=== PATIENT | male | born 1995 | race American Indian/Alaskan Native ===

== ENCOUNTER 2020-09-22 17:17 | Emergency (ER) | payer BC ==
[2020-09-22] MEDS ORDERED: HYOSCYAMINE SUBL 0.125 MG TAB SL ONE ×2 (18:43→21:11)
[2020-09-22] MEDS ORDERED: ONDANSETRON 4 MG ODT TAB PO ONE ×2 (18:43→21:11)
--- NOTE | 2020-09-22 18:52 | Emergency Department Report ---
ED N/V/D HPI - General Chief complaint: Abdominal Pain Stated complaint: ABD PAIN X 4DAYS Time Seen by Provider: 09/22/20 18:36 Source: patient Mode of arrival: Ambulatory Limitations: No Limitations - History of Present Illness Initial comments: Patient is a 25-year-old male presents emergency room with complaints of nausea, vomiting, diarrhea that began 4 days ago. He states that he had approximately 6 episodes of diarrhea today. He states he has a couple episodes of vomiting. He states he has lower abdominal discomfort. States it feels like a cramping and churning feeling. He states that 4 days ago he had a fever but that has completely resolved. He states he has not had a fever since then. He denies any hematochezia, melena, hematemesis, pus in the stool, back pain, urinary symptoms, productive cough. He has a past medical history of asthma and seizures. He has an allergy to ibuprofen. He denies any past abdominal surgical history. He denies any known sick contacts or recent travel. He denies any water from a different source, camping, recent antibiotics. - Related Data Previous Rx's Medication Instructions Recorded Last Taken Type Acetaminophen/Codeine [Tylenol #3] 1 tab PO Q6H PRN #14 tab 02/10/15 Unknown Rx Ibuprofen [Motrin 800 MG tab] 800 mg PO Q8HR PRN #30 tablet 02/10/15 Unknown Rx methOCARBAMOL [Robaxin TAB] 500 mg PO BID #10 tab 02/10/15 Unknown Rx Hyoscyamine Subl [Levsin Sl 0.125 0.125 mg SL Q6HR PRN #7 tab 09/22/20 Unknown Rx TAB] Ondansetron [Zofran Odt] 4 mg PO Q8HR PRN #7 tab.rapdis 09/22/20 Unknown Rx Allergies Allergy/AdvReac Type Severity Reaction Status Date / Time ibuprofen Allergy Rash Verified 09/22/20 18:32 ED Review of Systems ROS: Stated complaint: ABD PAIN X 4DAYS Other details as noted in HPI Comment: All other systems reviewed and negative ED Past Medical Hx - Past Medical History Previous Medical History?: Yes Hx Seizures: Yes Hx Psychiatric Treatment: Yes (bipolar) Hx Asthma: Yes - Social History Smoking Status: Never Smoker Substance Use Type: None - Medications Home Medications: Home Medications Medication Instructions Recorded Confirmed Last Taken Type Acetaminophen/Codeine [Tylenol #3] 1 tab PO Q6H PRN #14 tab 02/10/15 Unknown Rx Ibuprofen [Motrin 800 MG tab] 800 mg PO Q8HR PRN #30 tablet 02/10/15 Unknown Rx methOCARBAMOL [Robaxin TAB] 500 mg PO BID #10 tab 02/10/15 Unknown Rx Hyoscyamine Subl [Levsin Sl 0.125 0.125 mg SL Q6HR PRN #7 tab 09/22/20 Unknown Rx TAB] Ondansetron [Zofran Odt] 4 mg PO Q8HR PRN #7 tab.rapdis 09/22/20 Unknown Rx ED Physical Exam - General Limitations: No Limitations General appearance: alert, in no apparent distress - Head Head exam: Present: atraumatic, normocephalic - Eye Eye exam: Present: normal appearance - ENT ENT exam: Present: mucous membranes moist - Respiratory Respiratory exam: Present: rhonchi (very mild bilaterally, clears with cough). Absent: respiratory distress, wheezes, rales, stridor, chest wall tenderness, accessory muscle use, decreased breath sounds, prolonged expiratory - Cardiovascular Cardiovascular Exam: Present: regular rate, normal rhythm, normal heart sounds. Absent: systolic murmur, diastolic murmur, rubs, gallop - GI/Abdominal GI/Abdominal exam: Present: soft, normal bowel sounds. Absent: distended, tenderness, guarding, rebound, rigid - Neurological Exam Neurological exam: Present: alert, oriented X3 - Psychiatric Psychiatric exam: Present: normal affect, normal mood - Skin Skin exam: Present: warm, dry, intact ED Course Vital Signs 09/22/20 18:32 Temperature 98.4 F Pulse Rate 69 Respiratory 18 Rate Blood Pressure 158/105 [Right] O2 Sat by Pulse 98 Oximetry ED Medical Decision Making - Lab Data Result diagrams: 09/22/20 18:51 09/22/20 18:51 Lab Results 09/22/20 09/22/20 09/22/20 Range/Units 18:51 18:51 Unknown WBC 9.3 (4.5-11.0) K/mm3 RBC 4.80 (3.65-5.03) M/mm3 Hgb 14.2 (11.8-15.2) gm/dl Hct 42.6 (35.5-45.6) % MCV 89 (84-94) fl MCH 30 (28-32) pg MCHC 33 (32-34) % RDW 13.5 (13.2-15.2) % Plt Count 206 (140-440) K/mm3 Lymph % (Auto) 14.4 (13.4-35.0) % [place] % (Auto) 9.1 H (0.0-7.3) % Eos % (Auto) 2.4 (0.0-4.3) % Baso % (Auto) 0.8 (0.0-1.8) % Lymph # (Auto) 1.3 (1.2-5.4) K/mm3 [place] # (Auto) 0.8 (0.0-0.8) K/mm3 Eos # (Auto) 0.2 (0.0-0.4) K/mm3 Baso # (Auto) 0.1 (0.0-0.1) K/mm3 Seg Neutrophils % 73.3 H (40.0-70.0) % Seg Neutrophils # 6.8 (1.8-7.7) K/mm3 Sodium 138 (137-145) mmol/L Potassium 4.2 (3.6-5.0) mmol/L Chloride 100.1 (98-107) mmol/L Carbon Dioxide 31 H (22-30) mmol/L Anion Gap 11 mmol/L BUN 9 (9-20) mg/dL Creatinine 1.1 (0.8-1.3) mg/dL Estimated GFR > 60 ml/min BUN/Creatinine Ratio 8 % Glucose 91 (75-100) mg/dL Calcium 9.3 (8.4-10.2) mg/dL Total Bilirubin 0.20 (0.1-1.2) mg/dL AST 25 (5-40) units/L ALT 21 (7-56) units/L Alkaline Phosphatase 83 (35-129) units/L Total Protein 7.9 (6.3-8.2) g/dL Albumin 4.3 (3.9-5) g/dL Albumin/Globulin Ratio 1.2 % Lipase 24 (13-60) units/L Urine Color Yellow (Yellow) Urine Turbidity Clear (Clear) Urine pH 6.0 (5.0-7.0) Ur Specific [place] 1.021 (1.003-1.030) Urine Protein <15 mg/dl (Negative) mg/dL Urine Glucose (UA) Neg (Negative) mg/dL Urine Ketones Neg (Negative) mg/dL Urine Blood Neg (Negative) Urine Nitrite Neg (Negative) Urine Bilirubin Neg (Negative) Urine Urobilinogen < 2.0 (<2.0) mg/dL Ur Leukocyte Esterase Neg (Negative) Urine WBC (Auto) 3.0 (0.0-6.0) /HPF Urine RBC (Auto) 2.0 (0.0-6.0) /HPF Urine Mucus 3+ /HPF - Radiology Data Radiology results: report reviewed Ordering Physician: LUCILA LAW Date of Service: 09/22/20 Procedure(s): XR abd series w cxr 1V Accession Number(s): [id number] cc: LUCILA LAW Fluoro Time In Minutes: ACUTE ABDOMINAL SERIES INDICATION / CLINICAL INFORMATION: n/v/d, rhonchi bilaterally. COMPARISON: None available. FINDINGS: Normal bowel gas pattern. No evidence of obstruction or pneumoperitoneum. The accompanying chest x- ray shows no acute disease Signer Name: Ousmane Caal MD FACR Signed: 09/22/2020 7:22 PM Workstation Name: [id number] Transcribed By: MS Dictated By: Ousmane Caal MD Electronically Authenticated By: Ousmane Caal MD Signed Date/Time: 09/22/201921 DD/ 20 TD/TT: - Medical Decision Making Patient is a 25-year-old male presents emergency room with complaints of nausea, vomiting, diarrhea that began 4 days ago. He states that he had approximately 6 episodes of diarrhea today. He states he has a couple episodes of vomiting. He states he has lower abdominal discomfort. States it feels like a cramping and churning feeling. He states that 4 days ago he had a fever but that has completely resolved. He states he has not had a fever since then. He denies any hematochezia, melena, hematemesis, pus in the stool, back pain, urinary symptoms, productive cough. He has a past medical history of asthma and seizures. He has an allergy to ibuprofen. He denies any past abdominal surgical history. He denies any known sick contacts or recent travel. He denies any water from a different source, camping, recent antibiotics. Vitals are stable. No abdominal tenderness on exam, no guarding, no urine, no rigidity, normal bowel sounds, no peritoneal signs. Labs are normal. UA is within normal limits. X-ray chest with abdomen: Normal bowel gas pattern. No evidence of obstruction or pneumoperitoneum. The accompanying chest x-ray shows no acute disease. Symptoms could likely be consistent with a viral gastroenteritis. Do not suspect acute emergent intra-abdominal pathology at this time, no significant abdominal tenderness, patient is tolerating p.o. intake, no fever, no leukocytosis, no hematochezia, no pus in the stool. Discussed strict return precautions with patient. Zofran and Levsin given in the emergency department he is able to tolerate p.o. intake without difficulty and symptoms improved and he was feeling much better ready go home. Discussed all results with patient. Patient given prescription for Zofran and Levsin. Advised patient Please take medication as prescribed. Increase your water intak e. Eat a bland liquid diet slowly advance your diet as tolerated. Follow-up with a primary care doctor. Return to emergency room for new or worsening symptoms. Critical care attestation.: If time is entered above; I have spent that time in minutes in the direct care of this critically ill patient, excluding procedure time. ED Disposition Clinical Impression: Nausea vomiting and diarrhea Disposition: - TO HOME OR SELFCARE Is pt being admited?: No Does the pt Need Aspirin: No Condition: Stable Instructions: Viral Gastroenteritis, Adult Additional Instructions: Please take medication as prescribed. Increase your water intake. Eat a bland liquid diet slowly advance your diet as tolerated. Follow-up with a primary care doctor. Return to emergency room for new or worsening symptoms. Prescriptions: Hyoscyamine Subl [Levsin Sl 0.125 TAB] 0.125 mg SL Q6HR PRN #7 tab PRN Reason: diarrhea/abdominal cramping Ondansetron [Zofran Odt] 4 mg PO Q8HR PRN #7 tab.rapdis PRN Reason: nausea/vomiting Referrals: ADRIENNE FOSTER MD [Staff Physician] - 2-3 Days [facility] [Provider Group] - 2-3 Days Time of Disposition: 20:04 Print Language: AUSTRALIAN
[2020-09-22 19:09] LABS: Basophils # (Auto) 0.1 K/mm3 (0.0-0.1); Basophils % (Auto) 0.8 % (0.0-1.8); Eosinophils # (Auto) 0.2 K/mm3 (0.0-0.4); Eosinophils % (Auto) 2.4 % (0.0-4.3); Hematocrit 42.6 % (35.5-45.6); Hemoglobin 14.2 gm/dl (11.8-15.2); Lymphocytes # (Auto) 1.3 K/mm3 (1.2-5.4); Lymphocytes % (Auto) 14.4 % (13.4-35.0); Mean Corpuscular HGB Conc 33 % (32-34); Mean Corpuscular Volume 89 fl (84-94); Monocytes # (Auto) 0.8 K/mm3 (0.0-0.8); Monocytes % (Auto) 9.1 % (0.0-7.3); Red Cell Distribution Width 13.5 % (13.2-15.2)
[2020-09-22 19:24] LABS: Alanine Aminotransferase 21 units/L (7-56); Albumin 4.3 g/dL (3.9-5); BUN/Creatinine Ratio 8; Blood Urea Nitrogen 9 mg/dL (9-20); Calcium 9.3 mg/dL (8.4-10.2); Hemolysis Index 7
--- NOTE | 2020-09-22 19:26 | XRay Report ---
ACUTE ABDOMINAL SERIES INDICATION / CLINICAL INFORMATION: n/v/d, rhonchi bilaterally. COMPARISON: None available. FINDINGS: Normal bowel gas pattern. No evidence of obstruction or pneumoperitoneum. The accompanying chest x-ra y shows no acute disease Signer Name: Ousmane Caal MD FACR Signed: 09/22/2020 7:22 PM Workstation Name: [id number]
[2020-09-22 19:27] LABS: Platelet Count 206 K/mm3 (140-440)
[2020-09-22 20:00] LABS: Bilirubin,Urine NEG (Negative); Blood,Urine NEG (Negative); Color,Urine Yellow (Yellow); Mucus,Urine 3+ /HPF; Protein,Urine <15 mg/dL mg/dL (Negative); Urobilinogen,Urine < 2.0 mg/dL (<2.0)
[2020-09-22 21:24] VITALS: BP 161/99
== END 2020-09-22 21:24 | disposition home or self-care (01) ==
LOC: ED 17:17
DX: R11.2 Nausea with vomiting, unspecified (principal); R19.7 Diarrhea, unspecified; G40.909 Epilepsy, unspecified, not intractable, without status epilepticus; F32.9 Major depressive disorder, single episode, unspecified; J45.909 Unspecified asthma, uncomplicated; Z88.8 Allergy status to other drugs, medicaments and biological substances
CPT/HCPCS: 36415; 74022; 80053; 81001; 83690; 85025; Q0162

== ENCOUNTER 2020-11-11 11:46 | Emergency (ER) | payer BC ==
--- NOTE | 2020-11-11 14:12 | XRay Report ---
LEFT ANKLE 3 VIEWS INDICATION: left ankle pain. COMPARISON: No relevant prior imaging study available. FINDINGS: No acute, displaced fracture or dislocation is seen. There is a corticated ossific density measuring 5 mm adjacent to the tip of the lateral malleolus is likely a chronic ununited fracture fragment or h eterotopic ossification related to prior ligament injury. There is an accessory navicular medially. Soft tissue swelling is noted at the left ankle, greatest anteriorly. No foreign bodies are seen. IMPRESSION: 1. Soft tissue swelling, no acute fracture. Signer Name: Rigo Teresa MD Signed: 11/11/2020 2:05 PM Workstation Name: [id number]
[2020-11-11 14:22] VITALS: BP 155/105
--- NOTE | 2020-11-11 14:27 | Emergency Department Report ---
ED Lower Extremity HPI - General Chief Complaint: Extremity Injury, Lower Stated Complaint: PAIN IN BOTH LEGS Time Seen by Provider: 11/11/20 12:59 Source: patient Mode of arrival: Ambulatory Limitations: No Limitations - History of Present Illness Initial Comments: This is a 25-year-old male nontoxic, well nourished in appearance, no acute signs of distress presents to the ED with c/o of left ankle pain several days. Patient stated that he was running and twisted his ankle. Stated has radiation up towards his leg. Patient denies any other injuries or trauma. Patient denies any numbness, tingling, fever, chills, nausea, vomiting, chest pain, shortness of breath, headache, stiff neck. Patient denies any joint swelling or joint redness. Patient denies decreased range of motion. Patient stated has decreased gait due to pain. Patient denies any calf pain or swelling. Patient stated allergies to ibuprofen. Denies any significant past medical history. MD Complaint: ankle injury -: days(s) Injury: Ankle: Left Place: street/outdoors Severity: mild Severity scale (0 -10): 8 Improves With: immobilization Worsens With: weight bearing, movement, palpation Associated Symptoms: swelling, able to partially bear weight. denies: snap/pop sensation, numbness, tingling, unable to bear weight - Related Data Previous Rx's Medication Instructions Recorded Last Taken Type Acetaminophen/Codeine [Tylenol #3] 1 tab PO Q6H PRN #14 tab 02/10/15 Unknown Rx Ibuprofen [Motrin 800 MG tab] 800 mg PO Q8HR PRN #30 tablet 02/10/15 Unknown Rx methOCARBAMOL [Robaxin TAB] 500 mg PO BID #10 tab 02/10/15 Unknown Rx Hyoscyamine Subl [Levsin Sl 0.125 0.125 mg SL Q6HR PRN #7 tab 09/22/20 Unknown Rx TAB] Ondansetron [Zofran Odt] 4 mg PO Q8HR PRN #7 tab.rapdis 09/22/20 Unknown Rx Acetaminophen [Tylenol] 650 mg PO Q8H PRN #12 capsule 11/11/20 Unknown Rx Allergies Allergy/AdvReac Type Severity Reaction Status Date / Time ibuprofen Allergy Rash Verified 11/11/20 13:00 ED Review of Systems ROS: Stated complaint: PAIN IN BOTH LEGS Other details as noted in HPI Comment: All other systems reviewed and negative Constitutional: denies: chills, fever Eyes: denies: eye pain, eye discharge, vision change ENT: denies: ear pain, throat pain Respiratory: denies: cough, shortness of breath, wheezing Cardiovascular: denies: chest pain, palpitations Endocrine: no symptoms reported Gastrointestinal: denies: abdominal pain, nausea, diarrhea Genitourinary: denies: urgency, dysuria Musculoskeletal: denies: back pain, joint swelling, arthralgia Skin: denies: rash, lesions Neurological: denies: headache, weakness, paresthesias Psychiatric: denies: anxiety, depression Hematological/Lymphatic: denies: easy bleeding, easy bruising ED Past Medical Hx - Past Medical History Hx Seizures: Yes Hx Psychiatric Treatment: Yes (bipolar) Hx Asthma: Yes - Social History Smoking Status: Never Smoker Substance Use Type: None - Medications Home Medications: Home Medications Medication Instructions Recorded Confirmed Last Taken Type Acetaminophen/Codeine [Tylenol #3] 1 tab PO Q6H PRN #14 tab 02/10/15 Unknown Rx Ibuprofen [Motrin 800 MG tab] 800 mg PO Q8HR PRN #30 tablet 02/10/15 Unknown Rx methOCARBAMOL [Robaxin TAB] 500 mg PO BID #10 tab 02/10/15 Unknown Rx Hyoscyamine Subl [Levsin Sl 0.125 0.125 mg SL Q6HR PRN #7 tab 09/22/20 Unknown Rx TAB] Ondansetron [Zofran Odt] 4 mg PO Q8HR PRN #7 tab.rapdis 09/22/20 Unknown Rx Acetaminophen [Tylenol] 650 mg PO Q8H PRN #12 capsule 11/11/20 Unknown Rx ED Physical Exam - General Limitations: No Limitations General appearance: alert, in no apparent distress - Head Head exam: Present: atraumatic, normocephalic - Eye Eye exam: Present: normal appearance - Neck Neck exam: Present: normal inspection, full ROM - Respiratory Respiratory exam: Absent: respiratory distress - Cardiovascular Cardiovascular Exam: Present: regular rate - Extremities Exam Extremities exam: Present: normal inspection, full ROM, tenderness, normal capillary refill. Absent: pedal edema, joint swelling, calf tenderness - Expanded Lower Extremity Exam Left Hip exam: Present: normal inspection, full ROM, external rotation, internal rotation, pelvic stability. Absent: tenderness, swelling, abrasion, laceration, ecchymosis, deformity, crepidus, dislocation, erythema, shortening Upper Leg exam: Present: normal inspection, full ROM. Absent: tenderness, swelling, abrasion, laceration, ecchymosis, deformity, crepidus, dislocation, erythema Knee exam: Present: normal inspection, full ROM, full knee extension. Absent: tenderness, swelling, abrasion, laceration, ecchymosis, deformity, crepidus, dislocation, erythema, effusion, pain w/ pronation/supination, posterior draw sign, pain/laxity with valgus, pain/laxity with varus Lower Leg exam: Present: normal inspection, full ROM. Absent: tenderness, swelling, abrasion, laceration, ecchymosis, deformity, crepidus, dislocation, erythema, palpable cord, Beth's sign Ankle exam: Present: normal inspection, full ROM, tenderness, swelling. Absent: abrasion, laceration, ecchymosis, deformity, crepidus, dislocation, erythema, anterior draw sign Foot/Toe exam: Present: normal inspection, full ROM. Absent: tenderness, swelling, abrasion, laceration, ecchymosis, deformity, crepidus, dislocation, erythema, amputation, puncture wound, foreign body, calcaneal tenderness, tenderness at base of 5th metatarsal, nail avulsion, subungual hematoma Neuro vascular tendon exam: Present: no vascular compromise Gait: Positive: observed and limited by pain - Back Exam Back exam: Present: normal inspection, full ROM - Neurological Exam Neurological exam: Present: alert, oriented X3 - Psychiatric Psychiatric exam: Present: normal affect, normal mood - Skin Skin exam: Present: warm, dry, intact, normal color. Absent: rash ED Course Vital Signs 11/11/20 12:07 Temperature 98.0 F Pulse Rate 71 Respiratory 20 Rate Blood Pressure 155/105 O2 Sat by Pulse 98 Oximetry - Reevaluation(s) Reevaluation #1: 11/11/20 14:29 Patient is speaking in full sentences with no signs of distress noted. ED Lower Extremity MDM - Radiology Data [facility] [address] [place] [address] XRay Report Signed Patient: MAE DELA CRUZ MR#: [id number] : 1995 Acct:[id number] Age/Sex: 25 / M ADM Date: 11/11/20 Loc: ED Attending Dr: Ordering Physician: TAMMIE DAWSON NP Date of Service: 11/11/20 Procedure(s): XR ankle 3+V LT Accession Number(s): [id number] cc: TAMMIE DAWSON NP Fluoro Time In Minutes: LEFT ANKLE 3 VIEWS INDICATION: left ankle pain. COMPARISON: No relevant prior imaging study available. FINDINGS: No acute, displaced fracture or dislocation is seen. There is a corticated ossific density measuring 5 mm adjacent to the tip of the lateral malleolus is likely a chronic ununited fracture fragment or heterotopic ossification related to prior ligament injury. There is an accessory navicular medially. Soft tissue swelling is noted at the left ankle, greatest anteriorly. No foreign bodies are seen. IMPRESSION: 1. Soft tissue swelling, no acute fracture. Signer Name: Rigo Teresa MD Signed: 11/11/2020 2:05 PM Workstation Name: [id number] Transcribed By: ZACH Dictated By: Rigo Teresa MD Electronically Authenticated By: Rigo Teresa MD Signed Date/Time: 11/11/20 1405 DD/ 1403 TD/TT: - Medical Decision Making This is a 25-year-old male that presents with left ankle sprain. Patient is stable and was examined by me. I referred patient to an orthopedic doctor for further evaluation for possible MRI. X-ray has been obtained and dictated by the radiologist. Patient is notified of the x-ray report with noted by the patient. Patient does have normal gait with no tenderness and no joint swelling. No ecchymosis. no joint redness or swelling. Not warm to touch. No signs of cellulites present. Patient received a ankle stirrup and crutches and was educated by RN how to use crutches. Patient was instructed to RICE therapy. Patient is discharged with Motrin. At time of discharge, the patient does not seem toxic or ill in appearance. No acute signs of distress noted. Patient agrees to discharge treatment plan of care. No further questions noted by the patient. Critical care attestation.: If time is entered above; I have spent that time in minutes in the direct care of this critically ill patient, excluding procedure time. ED Disposition Clinical Impression: Left ankle sprain Qualifiers: Encounter type: initial encounter Involved ligament of ankle: unspecified ligament Qualified Code(s): S93.402A - Sprain of unspecified ligament of left ankle, initial encounter Disposition: TO HOME OR SELFCARE Is pt being admited?: No Does the pt Need Aspirin: No Condition: Stable Instructions: Ankle Sprain, Phase I Rehab-SportsMed, RICE Therapy for Routine Care of Injuries, [id number], Crutch Use, Adult, [id number] Additional Instructions: Follow-up with a orthopedic doctor in 3-5 days or if symptoms worsen and continue return to emergency room as soon as possible. No physical activity that extremity until cleared by orthopedic doctor Prescriptions: Acetaminophen [Tylenol] 650 mg PO Q8H PRN #12 capsule PRN Reason: Pain , Severe (7-10) Referrals: ELAYNE SENA MD [Primary Care Provider] - 3-5 Days PRIMARY CAREMD [Referring] - 3-5 Days NAKIA LIPSCOMB MD [Staff Physician] - 3-5 Days Forms: Work/School Release Form(ED) Time of Disposition: 14:31
== END 2020-11-11 15:20 | disposition home or self-care (01) ==
LOC: ED 11:46
DX: S93.402A Sprain of unspecified ligament of left ankle, initial encounter (principal); J45.909 Unspecified asthma, uncomplicated; F31.9 Bipolar disorder, unspecified; Z88.6 Allergy status to analgesic agent; Z79.899 Other long term (current) drug therapy; Z86.69 Personal history of other diseases of the nervous system and sense organs; X58.XXXA Exposure to other specified factors, initial encounter; Y93.02 Activity, running; Y92.410 Unspecified street and highway as the place of occurrence of the external cause; Y99.8 Other external cause status

== ENCOUNTER 2021-12-03 10:56 | Emergency (ER) | payer SELFPAY ==
[2021-12-03 16:55] VITALS: BP 139/86
--- NOTE | 2021-12-03 16:58 | Emergency Department Report ---
Minor Respiratory - HPI Chief Complaint: Back Pain/Injury Stated Complaint: BACK PAIN/COLD ALLERGIES Time Seen by Provider: 12/03/21 15:54 Duration: 2 to 3 wee Pain Location: Nose Severity: mild Minor Respiratory: Yes Rhinorrhea (With watery eyes), Yes Able to Tolerate Fluids, No Sore Throat, No Ear Pain, No Cough, No Sick Contacts, No Hemoptysis, No Chest Pain, No Shortness of Breath, No Fever Other History: 26-year-old male presents emerged from complaining of having clear nasal discharge associated with watery eyes and has an irritation to his respiratory tract off and off since the onset of 3 weeks ago thinks is secondary to his allergies presents to the emergency department seeking further treatment options as [id number] Tylenol was not strong enough to mitigate the symptoms. He also states he works at [employer] and had to do a lot of lifting pushing and pulling and gets occasional aches and pains to the back which he wants to have evaluated as well but primarily came to secure a work excuse as he did not feel up to going in today. He reports no hemoptysis or hematemesis hematochezia, fever, chills, sweats. No chest pain, no palpitations. ED Review of Systems ROS: Stated complaint: BACK PAIN/COLD ALLERGIES Other details as noted in HPI Comment: All other systems reviewed and negative Musculoskeletal: back pain ED Past Medical Hx - Past Medical History Previous Medical History?: Yes Hx Seizures: Yes Hx Psychiatric Treatment: Yes (bipolar) Hx Asthma: Yes - Surgical History Past Surgical History?: No - Social History Smoking Status: Never Smoker Substance Use Type: None - Medications Home Medications: Home Medications Medication Instructions Recorded Confirmed Last Taken Type Acetaminophen/Codeine [Tylenol #3] 1 tab PO Q6H PRN #14 tab 02/10/15 Unknown Rx Ibuprofen [Motrin 800 MG tab] 800 mg PO Q8HR PRN #30 tablet 02/10/15 Unknown Rx methOCARBAMOL [Robaxin TAB] 500 mg PO BID #10 tab 02/10/15 Unknown Rx Hyoscyamine Subl [Levsin Sl 0.125 0.125 mg SL Q6HR PRN #7 tab 09/22/20 Unknown Rx TAB] Ondansetron [Zofran Odt] 4 mg PO Q8HR PRN #7 tab.rapdis 09/22/20 Unknown Rx Acetaminophen [Tylenol] 650 mg PO Q8H PRN #12 capsule 11/11/20 Unknown Rx Levocetirizine Dihydrochloride 5 mg PO DAILY #7 12/03/21 Unknown Rx [Xyzal] Triamcinolone Acetonide [Nasacort 1 spray INNOSTRIL DAILY #1 spray 12/03/21 Unknown Rx SPRAY] Minor Respiratory Exam - Exam General: Vital signs noted. No distress. Alert and acting appropriately. HEENT: Yes Moist Mucous Membranes, No Pharyngeal Erythema, No Pharyngeal Exudates, No Rhinorrhea, No Conjuctival Injection, No Frontal Tenderness, No Maxillary Tenderness Ear: Neither TM Bulge, Neither TM Erythema, Neither EAC Pain, Neither EAC Discharge Neck: Yes Supple, No Adenopathy Lungs: Yes Good Air Exchange, Yes Cough, No Wheezes, No Ronchi, No Stridor, No Labored Respirations, No Retractions, No Use of Accessory Muscles, No Other Abnormal Lung Sounds Heart: Yes Regular, No Murmur Abdomen: Yes Normal Bowel Sounds, No Tenderness, No Peritoneal Signs Skin: No Rash, No Edema Neurologic: Alert and oriented, no deficits. Musculoskeletal: Unremarkable. ED Course Vital Signs 12/03/21 11:18 Temperature 98.8 F Pulse Rate 87 Respiratory 20 Rate Blood Pressure 144/89 O2 Sat by Pulse 99 Oximetry Critical care attestation.: If time is entered above; I have spent that time in minutes in the direct care of this critically ill patient, excluding procedure time. ED Disposition Clinical Impression: Allergic rhinitis, Back pain Disposition: 01 HOME / SELF CARE / HOMELESS Is pt being admited?: No Does the pt Need Aspirin: No Condition: Stable Instructions: Acute Back Pain, Adult, What You Need to Know About Chronic Back Pain, Back Injury Prevention, Allergic Rhinitis, Adult Additional Instructions: You were evaluated emergency department today for back pain. Your evaluation has shown no medicals conditions requiring emergent intervention at this time, however recommend that you follow-up with your primary care physician or your orthopedist for further testing as an outpatient. Please schedule an appointment for follow-up with your primary care physician as soon as possible. Return to emergency department if you experience d chest pain, shortness of breath, lightheadedness, feeling faint, nausea, vomiting , change in urinary symptoms, lower extremity numbness or lack of strengthor any other concerning symptoms. Prescriptions: Triamcinolone Acetonide [Nasacort SPRAY] 1 spray INNOSTRIL DAILY #1 spray Levocetirizine Dihydrochloride [Xyzal] 5 mg PO DAILY #7 Referrals: ADRIENNE FOSTER MD [Staff Physician] - 3-5 Days PRIMARY CARE, [Primary Care Provider] - 3-5 Days
== END 2021-12-03 16:55 | disposition home or self-care (01) ==
LOC: ED 10:56
DX: J30.9 Allergic rhinitis, unspecified (principal); M54.9 Dorsalgia, unspecified; R56.9 Unspecified convulsions; F31.9 Bipolar disorder, unspecified
CPT/HCPCS: 99282